=== PATIENT | female | born 1980 | race Caucasian/White ===

== ENCOUNTER 2024-12-29 10:32 | Emergency (ER) | payer MEDICAID, OTHER ==
[~2024-12-29] VITALS: Ht 144.8 cm; Wt 80.3 kg
[2024-12-29 10:57] VITALS: BP 136/48; PULSE 100; RESP 16; TEMP 99; O2SAT 97
--- NOTE | 2024-12-29 11:04 | ED.PDOC ---
Eye-HPI HPI Comments 44 y.o female with PMHX of CHF, [place], hyperlipidemia, thyroid disease, brain cancer, COPD, anxiety and bipolar disorder, presents to the ED for a chief complaint of facial swelling x 2 months. Mother who accompanied patient to the ED states taking patient to urgent care yesterday for the swelling but was referred to the ED. Patient mentions having broken front teeth for the past month as well. No mouth abscess, discharge, fever, chills, chest pain or rashes noted. Chief Complaint: Face pain Time Seen by MD: 10:51 Reviewed Notes: Nurses Notes, Medications, Allergies Allergies: Coded Allergies: Latex (Verified Allergy, Severe, 12/29/24) Penicillins (Verified Allergy, Severe, 12/29/24) Trolamine Salicylate (Verified Allergy, Severe, 12/29/24) Home Meds Active Scripts Cephalexin (KEFLEX CAPSULE) 250 Mg Cp, 1 CAP PO QID, #28 CAP Prov:VIC SAM MD 12/29/24 Methylprednisolone (Medrol Dosepak) 4 Mg Doc, 4 MG PO UD, #21 TAB UAD Prov:VIC SAM MD 12/29/24 Information Source: Patient, Relative (Mother) Mode of Arrival: Ambulatory Timing: Months (2) Duration: Since onset Onset: Spontaneous Past Medical History PAST MEDICAL HISTORY: Anxiety, Cancer (brain ), CHF, COPD, High Lipids, Thyroid Past Medical History (Other): bipolar disorder Surgical History: , Tonsillectomy Surgical History (Other): brain x2 and cataracts [employer]INTE[employer] 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 Family History Family History: Family hx of Cancer, Family hx of heart arias Social History Smoker: Cigarettes Alcohol: Occasionally Drugs: Marijuana Lives In: Home Constitutional: denies: chills, diaphoresis, fatigue, fever, malaise, sweats, weakness, others EENTM: reports: others (facial swelling); denies: blurred vision, double vision, ear bleeding, ear discharge, ear drainage, ear pain, ear ringing, eye p ain, eye redness, hearing loss, mouth pain, mouth swelling, nasal discharge, nose bleeding, nose congestion, nose pain, photophobia, tearing, throat pain, throat swelling, voice changes Respiratory: denies: cough, hemoptysis, orthopnea, SOB at rest, shortness of breath, SOB with excertion, stridor, wheezing, others Cardiovascular: denies: chest pain, dizzy spells, diaphoresis, Dyspnea on exertion, edema, irregular heart beat, left arm pain, lightheadedness, palpit ations, PND, syncope, others Gastrointestinal: denies: abdomen distended, abdominal pain, blood streaked b owels, constipated, diarrhea, dysphagia, difficulty swallowing, hematemesis, melena, nausea, poor appetite, poor fluid intake, rectal bleeding, rectal pain, vomiting, others Genitourinary: denies: abnormal vagina bleeding, burning, dyspareunia, dysuria, flank pain, frequency, hematuria, incontinence, pain, , vagina discharge, urgency, others Neurological: denies: dizziness, fainting, headache, left sided numbness, left sided weakness, numbness, paresthesia, pre-existing deficit, right sided numbness, right sided weakness, seizure, speech problems, tingling, tremors, weakness, others Musculoskeletal: denies: back pain, gout, joint pain, joint swelling, muscle pain, muscle stiffness, neck pain, others Integumetry: denies: bruises, change in color, change in hair/nails, dryness, laceration, lesions, lumps, rash, wounds, others Allergic/Immunocompromised: denies: Difficulty Healing, Frequent Infections, Hives, Itching, others Hematologic/Lymphatic: denies: anemia, blood clots, easy bleeding, easy brui sing, swollen glands, others Endocrine: denies: excessive hunger, excessive sweating, excessive thirst, ex cessive urination, flushing, intolerance to cold, intolerance to heat, unexplained weight gain, unexplained weight loss, others Psychiatric: denies: anxiety, bipolar disorder, depression, hopeless, panic disorder, schizophrenia, sleepless, suicidal, others All Other Systems: Reviewed and Negative Physical Exam General Appearance: Mild Distress HEENT: Pharynx Normal, TMs Normal, Other (Swelling to the facial area with dental caries to the right upper mandible) Neck: Full Range of Motion, Non-Tender, Normal, Normal Inspection Respiratory: Chest Non-Tender, Lungs Clear, No Accessory Muscle Use, No Respiratory Distress, Normal Breath Sounds Cardiovascular: No Edema, No JVD, No Murmur, No Gallop, Normal Peripheral Pulses, Regular Rate/Rhythm Breast Exam: Deferred Gastrointestinal: No Organomegaly, Non Tender, No Pulsatile Mass, Normal Bowel Sounds, Soft Genitalia: Deferred Pelvic: Deferred Rectal: Deferred Extremities: No calf tenderness, Normal capillary refill, Normal inspection, Normal range of motion, Non-tender, No pedal edema Musculoskeletal : Apperance: Normal Neurologic: Alert, coldfusion II-XII nml as Tested, No Motor Deficits, Normal Affect, Normal Mood, No Sensory Deficits Cerebellar Function: Normal Reflexes: Normal Skin: Dry, Normal Color, Warm Lymphatic: No Adenopathy Was a procedure done? Was a procedure done?: No EENT DIFF Eye: N/A Other Differential Diagnosis Cellulitis, Pulpitis, Anderson's angina, trauma/injury related. X-Ray, Labs, Meds, VS Vital Signs Date Time Temp Pulse Resp B/P (MAP) Pulse Ox O2 Delivery O2 Flow Rate FiO2 12/29/24 10:57 99.0 100 16 136/48 (77) 97 99.0 The patient is being discharged on a Medrol Dosepak At this time, the patient was given a prescription of Keflex. Time of 1ST Reevaluation: 12:00 Reevaluation 1ST: Unchanged Patient Education/Counseling: Diagnosis, Treatment, Prognosis, Need For Follow Up Family Education/Counseling: No Family Present SEPSIS Sepsis Screen Vital Signs Date Time Temp Pulse Resp B/P (MAP) Pulse Ox O2 Delivery O2 Flow Rate FiO2 12/29/24 10:57 99.0 100 16 136/48 (77) 97 99.0 Departure 1 Departure Time of Disposition: 11:20 Impression: Primary Impression: Dental caries Additional Impression: Facial swelling Disposition: HOME / SELF CARE / HOMELESS Condition: Fair e-Prescriptions Cephalexin (KEFLEX CAPSULE) 250 Mg Cp 1 CAP PO QID, #28 CAP Prov: VIC SAM MD 12/29/24 Methylprednisolone (Medrol Dosepak) 4 Mg Doc 4 MG PO UD, #21 TAB UAD Prov: VIC SAM MD 12/29/24 Discharged With: Self Critical Care Note Critical Care Time?: No Stability Stability form required: No Heart Score Heart Score: Heart Score Response (Comments) Value History N/A 0 EKG N/A 0 Age N/A 0 Risk Factors N/A 0 Troponin N/A 0 Total 0 I personally scribed for VIC SAM MD ([email or web address]) on 12/29/24 at 11:04. Electronically submitted by Mariam Quesada ([facility]). VIC SAM MD Dec 29, 2024 11:04
[2024-12-29] MEDS ORDERED: METH4PAK PO (11:13)
[2024-12-29] MEDS ORDERED: CEPH250C PO (11:13)
== END 2024-12-29 12:38 | disposition home or self-care (01) ==
LOC: ER 10:32
DX: K02.9 Dental caries, unspecified (principal); E78.5 Hyperlipidemia, unspecified; F31.9 Bipolar disorder, unspecified; E03.9 Hypothyroidism, unspecified; F17.210 Nicotine dependence, cigarettes, uncomplicated; I50.9 Heart failure, unspecified; J44.9 Chronic obstructive pulmonary disease, unspecified; Z85.841 Personal history of malignant neoplasm of brain; Z90.89 Acquired absence of other organs; Z88.0 Allergy status to penicillin; Z88.8 Allergy status to other drugs, medicaments and biological substances